=== PATIENT | male | born 1955 | race African-American/Black ===

== ENCOUNTER → 2023-12-26 13:04 | Outpatient (REF) | payer OTHER, SELFPAY ==
[2023-12-26 13:20] VITALS: BP_SYST 80
== END ==
LOC: RADI 13:04
PROVIDERS: ATTENDING PHYSICIAN Radiology Diagnostic Radiology
DX: T85.628A Displacement of other specified internal prosthetic devices, implants and grafts, initial encounter (principal); X58.XXXA Exposure to other specified factors, initial encounter; K65.1 Peritoneal abscess
CPT/HCPCS: 49423; 75984; C1729; C1769

== ENCOUNTER → 2024-01-30 07:53 | Outpatient (REF) | payer OTHER, SELFPAY | LOC: RADI 07:53 | PROVIDERS: ATTENDING PHYSICIAN Radiology Vascular & Interventional Radiology; FAMILY PHYSICIAN Nurse Practitioner Family | DX: Z46.82 Encounter for fitting and adjustment of non-vascular catheter (principal); K65.1 Peritoneal abscess | CPT/HCPCS: 49423; 75984; C1729; C1769 ==

== ENCOUNTER → 2024-03-14 07:32 | Outpatient (REF) | payer OTHER, SELFPAY | LOC: RADI 07:32 | PROVIDERS: ATTENDING PHYSICIAN Physician Assistant; FAMILY PHYSICIAN Nurse Practitioner Family | DX: K65.1 Peritoneal abscess (principal) | CPT/HCPCS: 49424; 76080; C1769 ==

== ENCOUNTER → 2024-04-27 07:45 | Outpatient (REF) | payer OTHER, SELFPAY ==
[2024-04-27 08:04] VITALS: BP 127/78; BP_SYST 85
[2024-04-27 08:46] VITALS: BP 153/94; BP_SYST 81
== END ==
LOC: RADI 07:45
PROVIDERS: ATTENDING PHYSICIAN Physician Assistant; FAMILY PHYSICIAN Nurse Practitioner Family
DX: Z46.82 Encounter for fitting and adjustment of non-vascular catheter (principal); K65.1 Peritoneal abscess
CPT/HCPCS: 49423; 75984

== ENCOUNTER → 2024-06-21 07:43 | Outpatient (REF) | payer OTHER, SELFPAY ==
[2024-06-21 08:00] VITALS: BP 137/86; BP_SYST 87
== END ==
LOC: RADI 07:43
PROVIDERS: ATTENDING PHYSICIAN Radiology Diagnostic Radiology
DX: Z46.82 Encounter for fitting and adjustment of non-vascular catheter (principal); K65.1 Peritoneal abscess
CPT/HCPCS: 49423; 75984

== ENCOUNTER → 2024-09-03 07:20 | Outpatient (REF) | payer OTHER, SELFPAY ==
[2024-09-03 07:31] VITALS: BP 145/75; BP_SYST 80
[2024-09-03 08:05] VITALS: BP 163/76; BP_SYST 80
[2024-09-03 08:15] VITALS: BP 163/76
== END ==
LOC: RADI 07:20
PROVIDERS: ATTENDING PHYSICIAN Physician Assistant; FAMILY PHYSICIAN Nurse Practitioner Family
DX: Z46.82 Encounter for fitting and adjustment of non-vascular catheter (principal); K65.1 Peritoneal abscess
CPT/HCPCS: 49423; 75984; C1729; C1769

== ENCOUNTER → 2024-10-15 06:41 | Outpatient (REF) | payer OTHER, SELFPAY ==
[2024-10-15 07:15] VITALS: BP 193/89; BP_SYST 98
[2024-10-15 08:00] VITALS: BP 193/89
== END ==
LOC: RADI 06:41
PROVIDERS: ATTENDING PHYSICIAN Radiology Diagnostic Radiology; FAMILY PHYSICIAN Nurse Practitioner Family
DX: Z46.82 Encounter for fitting and adjustment of non-vascular catheter (principal); K65.1 Peritoneal abscess
CPT/HCPCS: 49423; 76080; C1729; C1769

== ENCOUNTER → 2024-12-11 07:47 | Outpatient (REF) | payer OTHER, SELFPAY ==
[2024-12-11 08:00] VITALS: BP 190/93; BP_SYST 95
[2024-12-11 08:37] VITALS: BP 178/87
== END ==
LOC: RADI 07:47
PROVIDERS: ATTENDING PHYSICIAN Physician Assistant; FAMILY PHYSICIAN Nurse Practitioner Family
DX: Z46.82 Encounter for fitting and adjustment of non-vascular catheter (principal); K65.1 Peritoneal abscess
CPT/HCPCS: 49424; 76080; C1729; C1769

== ENCOUNTER → 2025-01-21 07:08 | Outpatient (REF) | payer OTHER, SELFPAY ==
[2025-01-21 07:30] VITALS: BP 174/74; BP_SYST 99
[2025-01-21 08:00] VITALS: BP 143/92
== END ==
LOC: RADI 07:08
PROVIDERS: ATTENDING PHYSICIAN Physician Assistant; FAMILY PHYSICIAN Nurse Practitioner Family
DX: Z46.82 Encounter for fitting and adjustment of non-vascular catheter (principal); K65.1 Peritoneal abscess
CPT/HCPCS: 49423; 75984; C1729; C1769

== ENCOUNTER → 2025-02-25 07:05 | Outpatient (REF) | payer OTHER, SELFPAY ==
[2025-02-25 08:00] VITALS: BP_SYST 83
== END ==
LOC: RADI 07:05
PROVIDERS: ATTENDING PHYSICIAN Physician Assistant
DX: Z46.82 Encounter for fitting and adjustment of non-vascular catheter (principal); K65.1 Peritoneal abscess
CPT/HCPCS: 49423; 76080; C1729; C1769

== ENCOUNTER → 2025-04-15 06:30 | Outpatient (REF) | payer OTHER, SELFPAY ==
[2025-04-15 07:53] VITALS: BP 163/72; BP_SYST 88
== END ==
LOC: RADI 06:30
PROVIDERS: ATTENDING PHYSICIAN Radiology Vascular & Interventional Radiology
DX: Z46.82 Encounter for fitting and adjustment of non-vascular catheter (principal); K65.1 Peritoneal abscess
CPT/HCPCS: 49423; 75984; C1725; C1769

== ENCOUNTER → 2025-06-04 06:56 | Outpatient (REF) | payer OTHER, SELFPAY ==
[2025-06-04 07:50] VITALS: BP 175/81; BP_SYST 83
[2025-06-04 08:45] VITALS: BP 172/100
== END ==
LOC: RADI 06:56
PROVIDERS: ATTENDING PHYSICIAN Physician Assistant
DX: Z46.82 Encounter for fitting and adjustment of non-vascular catheter (principal); K65.1 Peritoneal abscess
CPT/HCPCS: 49423; 75984; C1729; C1769

== ENCOUNTER → 2025-08-07 07:03 | Outpatient (REF) | payer OTHER, SELFPAY ==
[2025-08-07 07:49] VITALS: BP 172/73; BP_SYST 86
== END ==
LOC: RADI 07:03
PROVIDERS: ATTENDING PHYSICIAN Radiology Diagnostic Radiology; FAMILY PHYSICIAN Nurse Practitioner Family
DX: Z46.82 Encounter for fitting and adjustment of non-vascular catheter (principal); K65.1 Peritoneal abscess
CPT/HCPCS: 49423; 75984; C1729; C1769

== ENCOUNTER → 2025-10-07 06:44 | Outpatient (REF) | payer OTHER, SELFPAY ==
[2025-10-07 07:28] VITALS: BP 142/73; BP_SYST 84
[2025-10-07 08:01] VITALS: BP 147/80; BP_SYST 77
[2025-10-07 08:10] VITALS: BP 147/80
== END ==
LOC: RADI 06:44
PROVIDERS: ATTENDING PHYSICIAN Physician Assistant; FAMILY PHYSICIAN Nurse Practitioner Family
DX: Z46.82 Encounter for fitting and adjustment of non-vascular catheter (principal); K65.1 Peritoneal abscess
CPT/HCPCS: 49423; 49424; 75984